=== PATIENT | male | born 1945 | race Caucasian/White ===

== ENCOUNTER 2017-01-28 05:56 | Observation (INO) | payer MEDICARE, OTHER ==
[2017-01-28 06:02] VITALS: BMI 28.3
--- NOTE | 2017-01-28 07:17 | ED PDOC ---
Arrival/HPI - General Chief Complaint: Chest Pain Time Seen by Provider: 01/28/17 06:17 Historian: Patient - History of Present Illness Narrative History of Present Illness (Text): 01/28/17 07:17 A 71 year old male, whose past medical history includes diabetes, hypertension, diverticulitis and enlarged prostate, presents to the emergency department complaining of left arm pain for 1 week. Patient states the pain is worse with rotation of the arm. Patient reports his pain began after having a syncopal episode while in [place]. He reports he felt dizzy and fell to the floor. He notes a bruise on his chest but denies any head trauma, headache, dizziness, neck pain, back pain, fever, nausea, vomiting, diarrhea, abdominal pain, chest pain, shortness of breath or any other complaints. PMD: Dr. Johnson Time/Duration: 1 week Symptom Course: Unchanged Quality: Other Context: Other Past Medical History - Provider Review Nursing Documentation Reviewed: Yes - Travel History If Yes, travel location?: [place] - Cardiac Hx Cardiac Disorders: Yes Hx Hypertension: Yes - Pulmonary Hx Respiratory Disorders: Yes Hx Pneumonia: Yes (? 10-30-15) - Neurological Hx Neurological Disorder: Yes Other/Comment: NEUROPATHY - HEENT Hx HEENT Disorder: No - Renal Hx Renal Disorder: No - Endocrine/Metabolic Hx Endocrine Disorders: Yes Hx Diabetes Mellitus Type 2: Yes - Hematological/Oncological Hx Blood Disorders: No - Integumentary Hx Dermatological Disorder: No - Musculoskeletal/Rheumatological Hx Musculoskeletal Disorders: No - Gastrointestinal Hx Gastrointestinal Disorders: Yes Hx Diverticulitis: Yes - Genitourinary/Gynecological Hx Genitourinary Disorders: Yes Hx Prostate Problems: Yes (BPH) - Psychiatric Hx Psychophysiologic Disorder: No Hx Substance Use: No Other/Comment: SOCIALLY DRINKS AND SMOKING CIGARETTES H/O - Anesthesia Hx Anesthesia Reactions: No Hx Malignant Hyperthermia: No - Suicidal Assessment Feels Threatened In Home Enviroment: No Family/Social History - Physician Review Nursing Documentation Reviewed: Yes Family/Social History: No Known Family HX Smoking Status: Current Some Days Smoker Hx Alcohol Use: Yes Frequency of alcohol use: Socially Hx Substance Use: No Hx Substance Use Treatment: No Allergies/Home Meds Allergies/Adverse Reactions: Allergies No Known Allergies Allergy (Verified 10/30/15 16:07) Home Medications: Home Meds Medication Instructions Recorded Confirmed Unobtainable 01/28/17 01/28/17 Review of Systems - Physician Review All systems were reviewed & negative as marked: Yes - Review of Systems Constitutional: absent: Fevers Respiratory: absent: SOB Cardiovascular: absent: Chest Pain Gastrointestinal: absent: Abdominal Pain, Diarrhea, Nausea, Vomiting Musculoskeletal: Other (Left arm pain). absent: Back Pain, Neck Pain Neurological: absent: Headache, Dizziness Physical Exam - Physical Exam Narrative Physical Exam (Text): Constitutional: No acute distress. Head: Normocephalic. Atraumatic. Eyes: PERRL. ENT: Moist mucous membranes. Neck: Supple. Cardiovascular: Regular rate. Chest: No tenderness. Respiratory: Clear to auscultation bilaterally. GI: Soft. Nontender. Nondistended. Back: No CVA tenderness. No midline tenderness. Musculoskeletal: No swelling of extremities. Restricted ROM in left arm secondary to pain. Skin: No rash. Echymosis to left anterior lateral wall near axilla. Neurologic: Alert, no focal deficit. Vital Signs Reviewed: Yes Vital Signs Temp Pulse Resp BP Pulse Ox 01/28/17 11:20 63 18 163/86 H 100 01/28/17 10:17 63 18 153/83 H 97 01/28/17 07:42 59 L 16 155/78 H 98 01/28/17 06:04 97.8 F 69 19 151/95 H 96 Temperature: Afebrile Blood Pressure: Hypertensive Pulse: Regular Respiratory Rate: Normal Appearance: Positive for: Well-Appearing, Non-Toxic, Comfortable Pain Distress: None Mental Status: Positive for: Alert and Oriented X 3 Medical Decision Making ED Course and Treatment: 01/28/17 07:17 Impression: A 71 year old male with left arm pain after syncopal episode/fall. On exam, restricted ROM in left arm secondary to pain. Plan: -- Left humerus xray -- Left chest xray -- Left shoulder xray -- EKG -- Labs -- Toradol -- Reassess and disposition Progress Notes: XRs negative as read by me. Patient accepted for observation for syncope by Dr. Johnson. She recommends Dr. Monson for neuro consult and Dr. Simental for ortho consult. - Lab Interpretations Lab Results: 01/28/17 07:37 01/28/17 07:37 Lab Results 01/28/17 07:37: PT 10.8, INR 1.00, APTT 28.2 01/28/17 07:37: WBC 6.7, RBC 3.43 L, Hgb 11.6 L, Hct 34.5 L, MCV 100.6, MCH 33.8 , MCHC 33.6, RDW 14.6 H, Plt Count 338, MPV 9.3, Gran % 50.6, Lymph % (Auto) 25.4, [place] % (Auto) 11.6 H, Eos % (Auto) 11.5 H, Baso % (Auto) 0.9, Gran # 3.39 , Lymph # 1.7, [place] # 0.8 H, Eos # 0.8 H, Baso # 0.06 01/28/17 07:37: Sodium 142, Potassium 4.3, Chloride 107, Carbon Dioxide 27, Anion Gap 12, BUN 13, Creatinine 0.6, Est GFR ( Amer) > 60, Est GFR (Non- Af Amer) > 60, Random Glucose 170 H, Calcium 9.1, Total Bilirubin 1.0, AST 21, ALT 31, Alkaline Phosphatase 62, Total Creatine Kinase 84, Troponin I 0.01, Total Protein 6.6, Albumin 3.7, Globulin 3.0, Albumin/Globulin Ratio 1.2 I have reviewed the lab results: Yes - RAD Interpretation Radiology Orders: 01/28/17 07:18 RIBS LEFT & PA CHEST [RAD] Stat SHOULDER LEFT [RAD] Stat 01/28/17 07:20 HUMERUS LEFT [RAD] Stat - Medication Orders Current Medication Orders: Famotidine (Pepcid) 40 mg PO HS KYRA Hydromorphone HCl (Dilaudid) 0.5 mg IVP Q4H PRN PRN Reason: Pain, Mild (1-3) Insulin Human Regular (Humulin R Low) 0 units SC ACHS KYRA PRN Reason: Protocol Discontinued Medications Ketorolac Tromethamine (Toradol) 60 mg IM STAT STA Stop: 01/28/17 07:18 Ketorolac Tromethamine (Toradol) 30 mg IVP STAT STA Stop: 01/28/17 07:27 Last Admin: 01/28/17 07:30 Dose: 30 mg - Scribe Statement The provider has reviewed the documentation as recorded by the Herlinda De Souza Provider Scribe Attestation: All medical record entries made by the Scribe were at my direction and personally dictated by me. I have reviewed the chart and agree that the record accurately reflects my personal performance of the history, physical exam, medical decision making, and the department course for this patient. I have also personally directed, reviewed, and agree with the discharge instructions and disposition. Disposition/Present on Arrival - Present on Arrival Any Indicators Present on Arrival: No History of DVT/PE: No History of Uncontrolled Diabetes: No Urinary Catheter: No History of Decub. Ulcer: No History Surgical Site Infection Following: None - Disposition Have Diagnosis and Disposition been Completed?: Yes Diagnosis: Syncope, Shoulder pain Disposition: HOSPITALIZED Disposition Time: 08:29 Patient Plan: Observation, Telemetry Condition: STABLE
[2017-01-28 07:39] LABS: ADD MANUAL DIFF? NO
[2017-01-28 07:42] LABS: BASO # 0.06 K/mm3 (0.0-2.0); BASO % 0.9 % (0.0-3.0); EOS # 0.8 (0.0-0.7); EOS % 11.5 % (1.5-5.0); GRAN # 3.39 (1.4-6.5); GRAN % 50.6 % (50.0-68.0); HEMATOCRIT 34.5 % (42.0-52.0); LYMPH # 1.7 (1.2-3.4); LYMPH % 25.4 % (22.0-35.0); MEAN CELL VOLUME 100.6 fL (80.0-105.0); MEAN CORPUSCULAR HEMOGLOBIN 33.8 pg (25.0-35.0); MEAN CORPUSCULAR HGB CONC 33.6 g/dl (31.0-37.0); MEAN PLATELET VOLUME 9.3 fl (7.0-11.0); MONO # 0.8 (0.1-0.6); MONO % 11.6 % (1.0-6.0); PLATELET COUNT 338 10^3/uL (120.0-450.0); RED CELL DISTRIBUTION WIDTH 14.6 % (11.5-14.5); WHITE BLOOD COUNT 6.7 10^3/ul (4.5-11.0)
[2017-01-28 07:53] LABS: PARTIAL THROMBOPLASTIN TIME 28.2 Seconds (23.7-30.8)
[2017-01-28 07:55] LABS: ALB/GLOB RATIO 1.2 (1.1-1.8); ALKALINE PHOSPHATASE 62 U/L (38-133); ALT/SGPT 31 U/L (7-56); AST/SGOT 21 U/L (15-59); BLOOD UREA NITROGEN 13 mg/dL (7-21); CALCIUM 9.1 mg/dL (8.4-10.5); CARBON DIOXIDE 27 mmol/L (21-33); CHLORIDE 107 mmol/L (98-107); GFR AFRICAN-AMERICAN > 60; GLUCOSE,RANDOM 170 mg/dL (70-110); POTASSIUM 4.3 mmol/L (3.6-5.0); SODIUM 142 mmol/L (132-148); TOTAL PROTEIN 6.6 g/dL (5.8-8.3)
[2017-01-28 08:10] LABS: TROPONIN I 0.01 ng/mL
[2017-01-28] MEDS ORDERED: HYDROmorphone 0.5 mg/0.5 ml ISec IVP PRN (09:47)
[2017-01-28] MEDS ORDERED: MethylPREDNISolone Depo 40 mg/ml Inj IM ONE (12:28)
[2017-01-28] MEDS ORDERED: Bupivacaine 0.5% Inj(30mL) IJ ONE (12:28)
[2017-01-28] MEDS ORDERED: Pneumococcal 23-Valent Vaccine IM ONE (12:39)
--- NOTE | 2017-01-28 12:56 | CARD ---
APPROVED REPORT EKG Measurement Heart [id number] <Conclusion> Sinus rhythm with premature atrial complexes Right bundle branch block Abnormal ECG
--- NOTE | 2017-01-28 14:38 | RAD ---
PROCEDURE: Radiographs of the Chest and Left Ribs. HISTORY: fall, L sided pain, chest bruise COMPARISON: 10/30/2015. TECHNIQUE: Frontal radiograph of the chest and multiple oblique radiographs of the left ribs were obtained. FINDINGS: LEFT RIBS: No fracture or focal lesion visualized. LUNGS: Clear. PLEURA: No pneumothorax or pleural fluid. CARDIOVASCULAR: Normal sized heart. No pulmonary vascular congestion. OTHER FINDINGS: None. IMPRESSION: Unremarkable radiographs of the chest and left ribs. No left rib fracture.
--- NOTE | 2017-01-28 14:39 | RAD ---
PROCEDURE: Radiographs of the Left Shoulder HISTORY: fall, pain with shoulder movement COMPARISON: No prior. FINDINGS: BONES: Normal. No fracture. JOINTS: Acromioclavicular degenerative arthritis. Glenohumeral articulation is unremarkable. SOFT TISSUES: Normal. OTHER FINDINGS: None. IMPRESSION: Acromioclavicular degenerative arthritis. No acute fracture.
--- NOTE | 2017-01-28 14:39 | RAD ---
PROCEDURE: Radiographs of the left humerus. HISTORY: fall, arm pain COMPARISON: None. FINDINGS: BONES: Normal. No fracture or focal lesion. SOFT TISSUES: Normal. OTHER FINDINGS: None. IMPRESSION: Normal radiographs of left humerus.
[2017-01-28] MEDS: Insulin Reg-LOW-Coverage SC SCH ×3 (15:00→21:41)
[2017-01-28] MEDS ORDERED: Ergocalciferol 50,000 Intl Units Cap PO SCH (16:00)
--- NOTE | 2017-01-28 19:30 | CON ---
DATE: 01/28/2017 The patient is a 71-year-old male complaining of left shoulder pain for approximately a week. He was in [place]. X-rays show osteoarthritis of the AC joint and subacromial impingement with a spur. I had seen him 10 years ago and he got good relief with Depo-Medrol injection. I examined him. He has tenderness to the subacromial space and the AC joint. He is able to abduct to 120 degrees. He s ays he cannot reach forward or in the back. It looks like a subacromial impingement and acromioclavi cular joint osteoarthritis with intact rotator cuff function. So I injected the subacromial space an d AC joint with Depo-Medrol and Marcaine and hopefully this will improve his symptoms. I will see him tomorrow and see how he feels. If things do not get better, I will order an MRI. Merlin Castano DO cc: [id number] TT: 01/28/2017 19:30:03 Confirmation # [id number] Dictation # [id number] brandyn
--- NOTE | 2017-01-28 20:11 | CON ---
DATE: 01/28/2017 HISTORY OF PRESENT ILLNESS: This is a 71-year-old male with past medical history of diabetes, hypert ension, diverticulitis and prostate enlargement, came to the Emergency Room complaining of left arm p ain for 1 week, which was worsened on the arm began to. The patient has a pain after having a syncopal episode in [place] and he felt dizzy and fell on the floor. Denies any headache, dizzin ess, and neck pain or back pain. PAST MEDICAL HISTORY: As above. ALLERGIES: No known drug allergies. HOME MEDICATIONS: Not known. REVIEW OF SYSTEMS: A 10-point review of systems was negative. PHYSICAL EXAMINATION: VITAL SIGNS: Blood pressure 151/95. HEENT: Normocephalic, atraumatic. NECK: Supple. NEUROLOGIC: Alert, awake, oriented x 3. No aphasia. Cranial nerves II through XII were tested. Pu pils reactive. EOM intact. Visual martinez full. No facial asymmetry. Tongue midline. Motor examin ation: Moves all the extremities except left upper extremity limited and shoulder. Sensory appears intact. Cerebellar, gait normal. IMPRESSION: Left shoulder tendinitis. Syncope, less likely seizure. We will order the CAT scan of the head without contrast. The patient was seen by Dr. Castano had an injection in the le ft shoulder. Feeling better now. Workup is in progress. We will follow up. Dewayne Monson MD cc: [id number] TT: 01/28/2017 20:10:36 Confirmation # [id number] Dictation # [id number] mn
--- NOTE | 2017-01-28 21:34 | HP ---
CHIEF COMPLAINT: Left shoulder pain and history of passing out. HISTORY OF PRESENT ILLNESS: The patient is a 71-year-old male with a past medical history of diabetes mellitus, hypertension, diverticulitis, BPH, very noncompliant, who came to the Emergency Room complaining of left shoulder pain from 1 week. The patient states the pain is worst with rotation of the arm and the patient reports that his pain began after having a syncopal episode while in [place]. He reports he felt dizzy and fell to the floor. He noticed a bruise on the chest, but denies any head trauma, headache, dizziness, neck pain , back pain, fever, nausea, vomiting, or diarrhea. No shortness of breath. PAST MEDICAL HISTORY: Hypertension, pneumonia, diabetes mellitus, diverticulitis, BPH, history of smoking. FAMILY HISTORY: Father and mother noncontributory. HABITS: Alcohol yes, smoking yes, drugs and substance abuse no. ALLERGIES: The patient is not allergic with any medication. REVIEW OF SYSTEMS: The patient is seen and examined on the bedside. is sitting on the bedside also. No nausea, vomiting, or diarrhea. No hematuria or hematochezia. No swelling of the legs. No chest pain, no palpitation, no headache, no dizziness. Complaining about left shoulder pain. PHYSICAL EXAMINATION: VITAL SIGNS: Temperature 97.8, pulse 59, respiratory 19, blood pressure 150/95 , and pulse oximetry 96. HEENT: Head normocephalic, atraumatic. Eyes: PERRLA. Extraocular muscles are intact. Conjunctivae are clear. Nose patent. Mucous membranes moist. NECK: Supple. No carotid bruit, JVD or thyromegaly. CHEST: Bilaterally symmetrical. HEART: S1, S2 positive. LUNGS: Clear to auscultation. ABDOMEN: Soft. Bowel sounds present. No organomegaly. EXTREMITIES: No edema, no cyanosis. NEUROLOGIC: The patient is awake, alert and moving all 4 extremities. No focal deficits. LABORATORY DATA: White blood cells 6.7, hemoglobin 11.6, hematocrit 34.5, and platelets 338. Sodium 142, potassium 4.3, BUN 13, creatinine 0.7, glucose 170. ASSESSMENT AND PLAN: The patient is a 71-year-old male with anemia, hyperglycemia, history of syncopal attack, uncontrolled diabetes mellitus, history of diverticulitis, benign prostatic hypertrophy, obesity, noncompliant, history of pneumonia, who was in [place] 1 week ago and had a syncopal attack over there and came here with left shoulder pain. Orthopedic consult called with Dr. Castano. He saw the patient's. A CAT scan of the head is done, the results are pending. X-ray of the humerus and shoulder done. X- rays shows osteoarthritis of the acromioclavicular joint and subacromial impingement . Ten years ago he had the same problem and got a Depo-Medrol injection and he got relief. It looks like a subacromial impingement and acromioclavicular joint osteoarthritis with intact rotator cuff function. Dr. Castano injected the subacromial space and AC joint with Depo-Medrol and Marcaine. Maybe the patient needs an MRI of the shoulder. Neurology consult called, waiting for their input. Discussion done with the . Home medications started. Gastrointestinal and deep venous thrombosis prophylaxis. Will followup. Aleyda Johnson MD cc: [id number] TT: 01/28/2017 21:34:23 huy DEY
[2017-01-29] MEDS: Insulin Reg-LOW-Coverage SC SCH ×4 (08:14→21:28)
[2017-01-29] MEDS: Multivitamin Therapeutic Tab PO SCH (09:24)
--- NOTE | 2017-01-29 12:09 | CT ---
PROCEDURE: CT HEAD WITHOUT CONTRAST. HISTORY: syncopy COMPARISON: None available. TECHNIQUE: Axial computed tomography images were obtained through the head/brain without intravenous contrast. Radiation dose: Total exam DLP = 725.84 mGy-cm. This CT exam was performed using one or more of the following dose reduction techniques: Automated exposure control, adjustment of the mA and/or kV according to patient size, and/or use of iterative reconstruction technique. FINDINGS: HEMORRHAGE: No intracranial hemorrhage. BRAIN: No mass effect or edema. Mild diffuse age-appropriate atrophy. Possible small bilateral chronic subdural frontal hygromas. These are of uniformly CSF attenuation. Alternatively, this could represent bilateral frontal atrophy. VENTRICLES: Unremarkable. No hydrocephalus. CALVARIUM: Unremarkable. PARANASAL SINUSES: Unremarkable as visualized. No significant inflammatory changes. MASTOID AIR CELLS: Unremarkable as visualized. No inflammatory changes. OTHER FINDINGS: None. 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 . No intracranial mass, hemorrhage or evidence of acute infarct.
--- NOTE | 2017-01-29 16:37 | CON ---
DATE: 01/29/2017 REASON FOR CONSULTATION: Syncope. The patient is very difficult in history taking and I relied mostly on the history reported by the Em ergency Room team as well as by the primary physician. The patient is a 71-year-old male who has history of hypertension, diabetes mellitus, divert iculitis, and benign prostatic hypertrophy. He presented because of left arm pain. A week earlier, the patient was doing some work in his house, which he did not explain to me what kind of mechanical repair he was doing. The patient claimed that he hit his shoulder against the wall and fell down and the patient did not want to go into the details of passing or not passing out. He presented because of left arm pain. He denies any history of heart attack in the past. He reported to emergency team dizziness prior to falling. The patient had no one to witness his condition at home and the wa s sitting at the bedside and denied knowing anything about the event. At this time, the patient adrián es any dizziness. SOCIAL HISTORY: The patient is a former smoker. He is and retired. MEDICATIONS: Cozaar 100 mg daily, Dilaudid 0.5 mL q.4 hours p.r.n., Glucophage 1 gram twice a day, L yrica 100 mg twice a day, multivitamin 1 tablet once a day. REVIEW OF SYSTEMS: No nausea or vomiting, no fever or chills. PHYSICAL EXAMINATION: GENERAL: The patient is an elderly male who does not appear to be in acute distress. VITAL SIGNS: Blood pressure 157/72, heart rate 51, temperature 97.1, respirations 20. HEENT: Normocephalic. NECK: No JVD. CHEST: Clear. Left subclavian ecchymosis. HEART: S1, S2 regular. EXTREMITIES: 1+ left leg edema. LABORATORY DATA: Hemoglobin and hematocrit 11.6 and 34.5. White count and platelet count are within normal limit. SMA-7 is within normal limit except for glucose of 170. One set of troponin is negat román. PT, PTT is within normal limit. Echocardiographic study performed in October of last year rev ealed ejection fraction of 65%, moderate mitral insufficiency and trace aortic insufficiency. Left h umerus x-ray: No fracture. Left shoulder x-ray revealed acromioclavicular degenerative arthritis, n o acute fracture. Head CT scan revealed bilateral chronic frontal subdural hygromas versus bifrontal atrophy. EKG revealed sinus rhythm, APCs, right bundle branch block. ASSESSMENT: 1. Questionable syncopal episode. 2. Hypertension and diabetes mellitus. 3. Mild sinus bradycardia. 4. Atrial bigeminy noted on the monitor. RECOMMENDATIONS: Continue Cozaar at 100 mg once a day, Glucophage at 1 gram twice a day. Continue t elemetry monitoring. Obtain carotid Doppler. Further neuro workup will be left for the analysis consultant n eurologist. Jai Torres MD cc: [id number] TT: 01/29/2017 16:36:47 Confirmation # [id number] Dictation # [id number]
[2017-01-30 00:16] VITALS: RESP 20
[2017-01-30 05:46] VITALS: O2SAT 96
[2017-01-30] MEDS: Insulin Reg-LOW-Coverage SC SCH ×3 (07:44→16:35)
[2017-01-30] MEDS: Multivitamin Therapeutic Tab PO SCH (09:32)
--- NOTE | 2017-01-30 10:14 | PN ---
DATE: 01/30/2017 SUBJECTIVE: The patient was seen and examined on the bedside. Looks comfortable. was sitting on the bedside also. No nausea, vomiting, or diarrhea. No hematuria, no hematochezia, no fever, no chills. PHYSICAL EXAMINATION: VITAL SIGNS: Temperature 98.6, blood pressure 157/72, heart rate 51, temperature 97.1, respiratory rate 20. HEAD: Normocephalic, atraumatic. EYES: PERRLA. Extraocular movements intact. Conjunctivae are clear. Nose is patent. Mucous membranes moist. NECK: Supple. No carotid bruit, JVD, or thyromegaly. CHEST: Bilaterally symmetrical. HEART: S1, S2 positive. LUNGS: Clear to auscultation. ABDOMEN: Soft. Bowel sounds present. No organomegaly. EXTREMITIES: +1 leg edema. NEUROLOGIC: The patient is awake, alert, moving all extremities. No focal deficit. LABORATORY DATA: White blood cells 6.7, hemoglobin 11.6, hematocrit 34.5, platelets 338. Sodium 142, potassium 4.3, BUN 13, creatinine 0.6, glucose 170. Liver function tests within normal limits. ASSESSMENT AND PLAN: The patient is a 71-year-old male with anemia, uncontrolled diabetes mellitus, came with a syncopal attack, shoulder pain, history of diverticulitis, benign prostatic hypertrophy, mild sinus bradycardia as per cardiology, atrial bigeminy noted on the monitor. Seen by the assisted living housekeeper, soto Baker. According to assisted living housekeeper, continue telemetry monitoring. He was seen by the neurologist, Dr. Dewayne Monson. Left shoulder tendinitis. According to Dr. Monson, syncope does not look like seizure. The patient was seeing Dr. Castano also. He gave an intra-articular injection , feeling better. neurology workup is in the process. We will follow up. Aleyda Johnson MD cc: [id number] TT: 01/30/2017 10:14:24 Confirmation # [id number] Dictation # [id number] MTDD
--- NOTE | 2017-01-30 14:49 | PN ---
DATE: 01/30/2017 REASON FOR CONSULTATION AND FOLLOWUP: Fell down, rule out syncope. BRIEF CLINICAL HISTORY: This is a 71-year-old Yakut-speaking male, ex-smoker with past medical his tory of hypertension, diabetes, hyperlipidemia, obesity, who was in [place] and tried to wear the shoes and tie laces. He fell down. Denies any loss of consciousness. Denies any palpitation. Com plaining of left shoulder pain and hurt. Yesterday, seen by Dr. Castano. Denies any chest pain , shortness of breath, any palpitation. PHYSICAL EXAMINATION: VITAL SIGNS: Temperature afebrile, heart rate 55, blood pressure 139/68. HEENT: PERRLA. Extraocular muscles intact. NECK: Supple. No carotid bruits. No thyromegaly. CHEST: Clear to auscultation. HEART: S1, S2 regular. ABDOMEN: Soft. EXTREMITIES: Clubbing, cyanosis negative. BLOOD WORKUP: WBC , hemoglobin , hematocrit 34.5, platelet count 338. Chemistry shows sod ium 140, potassium 4. , chloride 107, carbon dioxide 27, anion gap of 12, BUN 13, creatinine 0.6. Troponin 0.01, negative. IMPRESSION: Left shoulder joint pain, probably secondary to acromial joint arthritis, seen by Dr. Charan mitchell and was given Depo-Medrol injection at subacromial space, feels better, fell down while he was trying to . Denies any history of syncope, loss of consciousness, chest pain or any histor y of angina. History of echocardiography on 11/02/2015 that shows normal left ventricular ejection fr action 65%, trace aortic regurgitation, eccentrically directed, moderate mitral regurgitation, mild t ricuspid regurgitation, right ventricular systolic pressure 44. The patient had a stress test on 04/2014 that shows probably normal myocardial perfusion study, fixed defect, ejection fraction 60%. D iabetes, hypertension, hyperlipidemia, obesity. RECOMMENDATION: Continue evaluation and followup with Dr. Castaon. Consider stress test as out patient because of multiple risk factors, but no evidence of ischemia, no complaint of chest pain. S tress test can be done as outpatient. We will discontinue telemetry. Thank you, Dr. Johnson, for providing us the opportunity in taking care of the patient. Stephany Wilkins MD cc: [id number] TT: 01/30/2017 14:48:25 Confirmation # [id number] Dictation # [id number]
--- NOTE | 2017-01-30 17:30 | US ---
PROCEDURE: Bilateral carotid artery duplex ultrasound HISTORY: Carotid stenosis syncope PHYSICIAN(S): Tavares Stock MD. TECHNIQUE: Duplex sonography and color-flow Doppler were used to evaluate the carotid bifurcations and limited segments of the vertebral arteries bilaterally. FINDINGS: There is mild smooth echogenic plaque noted at the carotid bifurcations bilaterally. The peak systolic velocity in the proximal right internal carotid artery is 82 cm/sec. This corresponds to a 20 to 39% proximal right ICA stenosis. Normal systolic velocities are noted in the proximal right external carotid artery. There is antegrade flow in the right vertebral artery. The peak systolic velocity in the proximal left internal carotid artery is 88 cm/sec. This corresponds to a 20 to 39% proximal left ICA stenosis. Normal systolic velocities are noted in the proximal left external carotid artery. There is antegrade flow in the left vertebral artery. IMPRESSION: 1. Bilateral 20-39% proximal ICA stenoses. 2. Antegrade flow in both vertebral arteries.
[2017-01-30 18:54] VITALS: BP 132/57; PULSE 57; TEMP 97.9
--- NOTE | 2017-02-06 19:09 | DS ---
CHIEF COMPLAINT: Left shoulder pain and history of passing out. HISTORY OF PRESENT ILLNESS: The patient is a 71-year-old male with a past medical history of diabete s mellitus, hypertension, hypercholesterolemia, diverticulitis and BPH, was noncompliant with the med ications and office visits, came to the hospital with a history of a syncopal attack and left shoulde r pain. Actually, the patient was in [place] and there he had a syncopal attack and a fall on hi s left shoulder with shoulder pain, he never went to the physician over there and came back to the [place] and came to the Emergency Room. We admitted the patient and did rib x-rays, shoulder x-rays, humer us and a CAT scan of the head. A cardiology consult called with called with Dr. Wilkins to rule out arr hythmias. A carotid artery ultrasound was done and read by Dr. Tavares Stock. Seen by Neurologist Dr. Monson. Dr. Castano did intraarticular injection. After that, he started feeling. Overall th e patient felt better, was cleared by the president sales and marketing and neurologist for discharge. Was discharged home to follow up with primary care physician, president sales and marketing and neurologist as an outpatient. PAST MEDICAL HISTORY: Hypertension, pneumonia, diabetes mellitus, diverticulitis, BPH, history of sm oking. FAMILY HISTORY: Father and mother noncontributory. HABITS: Alcohol use yes, smoking yes, and substance abuse no. ALLERGIES: The patient is not allergic with any medications. REVIEW OF SYSTEMS: The patient was seen and examined on the bedside, looks comfortable. No nausea, vomiting, or diarrhea. No hematuria or hematochezia. No swelling of the leg. No headache, no dizzi ness. For more details, see my progress notes of 01/30/17. Aleyda Johnson MD cc: [id number] TT: 02/06/2017 19:08:06 huy
== END 2017-01-30 19:28 | disposition home or self-care (01) ==
LOC: ED 05:56 → ERH 09:21 → 2RSO 11:35 → INTOOBSV 01-30 09:46 → OBSVTOIN 01-30 09:46
PROVIDERS: ADMIT Internal Medicine; ATTEND Internal Medicine
DX: R55 Syncope and collapse (principal); N40.0 Benign prostatic hyperplasia without lower urinary tract symptoms; I10 Essential (primary) hypertension; E11.65 Type 2 diabetes mellitus with hyperglycemia; M19.012 Primary osteoarthritis, left shoulder; M75.42 Impingement syndrome of left shoulder; R00.1 Bradycardia, unspecified; R00.8 Other abnormalities of heart beat; D64.9 Anemia, unspecified; K57.92 Diverticulitis of intestine, part unspecified, without perforation or abscess without bleeding; E78.5 Hyperlipidemia, unspecified; E66.9 Obesity, unspecified; Z68.41 Body mass index [BMI] 40.0-44.9, adult; Z79.4 Long term (current) use of insulin; Z91.19 Patient's noncompliance with other medical treatment and regimen; Z87.891 Personal history of nicotine dependence
CPT/HCPCS: 20610; 70450; 71101; 73030; 73060; 80053; 82550; 82948; 84484; 85025; 85610; 85730; 93005; 93880; 96374; 96375; 97116; 97162; 99285; G0378; G8978; G8979; G8980; J1170; J1885

== ENCOUNTER 2017-06-20 16:56 | Inpatient (IN) | payer MEDICARE, OTHER ==
[2017-06-20 17:02] VITALS: BMI 43.4
--- NOTE | 2017-06-20 17:17 | ED PDOC ---
Arrival/HPI - General Chief Complaint: Shortness Of Breath Time Seen by Provider: 06/20/17 16:57 Historian: Patient - History of Present Illness Narrative History of Present Illness (Text): 06/20/17 17:14 A 71 year old male, whose past medical history includes CHF, A-fib, diabetes, hypertension, diverticulitis and enlarged prostate, presents to the emergency department complaining of SOB x 4 weeks. Patient stated he was living in [place], and he was admitted in the Hospital twice since last month. Patient was Dx. CHF, and A-fib. Patient denies cp, recent trauma, fever, dizziness, or abnormal gait. Time/Duration: Other (see hpi) Context: Home Past Medical History - Provider Review Nursing Documentation Reviewed: Yes - Cardiac Hx Cardiac Disorders: Yes Hx Hypertension: Yes - Pulmonary Hx Respiratory Disorders: Yes Hx Pneumonia: Yes (? 10-30-15) - Neurological Hx Neurological Disorder: Yes Other/Comment: periphral neuropathy from b/l knees down to feet, pins and needles, "legs jump" - HEENT Hx HEENT Disorder: No - Renal Hx Renal Disorder: No - Endocrine/Metabolic Hx Diabetes Mellitus Type 2: Yes - Hematological/Oncological Hx Blood Disorders: No - Integumentary Hx Dermatological Disorder: No - Musculoskeletal/Rheumatological Hx Falls: Yes (1 wk ago syncopal episode) - Gastrointestinal Hx Gastrointestinal Disorders: Yes Hx Diverticulitis: Yes Other/Comment: hemorrhoids - Genitourinary/Gynecological Hx Genitourinary Disorders: Yes Hx Prostate Problems: Yes (BPH) - Psychiatric Hx Psychophysiologic Disorder: No Hx Substance Use: No Other/Comment: SOCIALLY DRINKS AND SMOKING CIGARETTES sometimes at social gatherings - Anesthesia Hx Anesthesia Reactions: No Hx Malignant Hyperthermia: No - Suicidal Assessment Feels Threatened In Home Enviroment: No Family/Social History - Physician Review Nursing Documentation Reviewed: Yes Family/Social History: Other (Noncontributory) Smoking Status: Light Smoker < 10 Cigarettes Daily Hx Alcohol Use: Yes (social) Hx Substance Use: No Hx Substance Use Treatment: No Allergies/Home Meds Allergies/Adverse Reactions: Allergies No Known Allergies Allergy (Verified 10/30/15 16:07) Home Medications: Home Meds Medication Instructions Recorded Confirmed Atorvastatin [Lipitor] 20 mg PO DAILY 06/20/17 06/20/17 Carvedilol [Coreg] 6.25 mg PO BID 06/20/17 06/20/17 Irbesartan 150 mg PO DAILY 06/20/17 06/20/17 Losartan [Cozaar] 100 mg PO DAILY 06/20/17 06/20/17 MetFORMIN [glucOPHAGE] 1,000 mg PO BID 06/20/17 06/20/17 Spironolactone [Aldactone] 25 mg PO DAILY 06/20/17 06/20/17 Tamsulosin [Flomax] 0.4 mg PO DAILY 06/20/17 06/20/17 Review of Systems - Review of Systems Constitutional: Normal. absent: Fatigue, Weight Change, Fevers Eyes: Normal ENT: Normal Respiratory: SOB. absent: Cough, Sputum, Wheezing Cardiovascular: Edema, ROGERS. absent: Chest Pain, Palpitations, Calf Pain, Orthopnea, Syncope Gastrointestinal: Normal. absent: Abdominal Pain, Nausea, Vomiting Genitourinary Male: Normal Musculoskeletal: Normal Skin: Normal. absent: Rash Neurological: Normal. absent: Headache, Dizziness, Focal Weakness, Gait Changes , Speech Changes, Facial Droop, Disequilibrium, Seizure Endocrine: Normal Hemo/Lymphatic: Normal Psychiatric: Normal Physical Exam Vital Signs Temp Pulse Resp BP Pulse Ox 06/20/17 19:57 122/72 06/20/17 19:00 97 H 22 143/75 94 L 06/20/17 17:04 97.7 F 90 24 130/69 97 Temperature: Afebrile Blood Pressure: Normal Pulse: Regular Respiratory Rate: Normal Appearance: Positive for: Well-Appearing, Non-Toxic, Comfortable Pain Distress: None Mental Status: Positive for: Alert and Oriented X 3 - Systems Exam Head: Present: Atraumatic, Normocephalic Pupils: Present: PERRL Extroacular Muscles: Present: EOMI Conjunctiva: Present: Normal Mouth: Present: Moist Mucous Membranes Neck: Present: Normal Range of Motion Respiratory/Chest: Present: Clear to Auscultation, Good Air Exchange. No: Respiratory Distress, Accessory Muscle Use, Wheezes, Retracting Cardiovascular: Present: Normal S1, S2. No: Murmurs Abdomen: Present: Normal Bowel Sounds. No: Tenderness, Distention, Peritoneal Signs Back: Present: Normal Inspection. No: CVA Tenderness Upper Extremity: Present: Normal Inspection, Normal ROM, NORMAL PULSES, Neurovascularly Intact, Capillary Refill < 2s. No: Cyanosis, Edema Lower Extremity: Present: Normal Inspection, Edema, NORMAL PULSES, Normal ROM, Neurovascularly Intact, Capillary Refill < 2 s. No: CALF TENDERNESS Neurological: Present: GCS=15, CN II-XII Intact, Speech Normal, Motor Func Grossly Intact, Normal Sensory Function, Normal Cerebellar Funct, Gait Normal Skin: Present: Warm, Dry, Normal Color. No: Rashes Psychiatric: Present: Alert, Oriented x 3, Normal Insight, Normal Concentration Medical Decision Making ED Course and Treatment: 06/20/17 19:[address] Carreon regarding patient's complain of shortness of breath. She recommended Sudarshan Vickers Traffic Control Operator and Dr. Vila Tour Director for consult She agrees with plan for admission Re-evaluation Time: 20:00 Reassessment Condition: Re-examined, Improving,but remains with symptoms - Lab Interpretations Lab Results: 06/20/17 17:30 06/20/17 17:30 Lab Results 06/20/17 17:30: Sodium 135, Chloride 96 L, Potassium 3.6, Carbon Dioxide 29, Anion Gap 14, BUN 10, Creatinine 0.5 L, Est GFR ( Amer) > 60, Est GFR ( Non-Af Amer) > 60, Random Glucose 257 H, Calcium 8.9, Total Bilirubin 0.6, AST 22, ALT 30, Alkaline Phosphatase 127 H, Lactate Dehydrogenase 429, Total Creatine Kinase 25 L, Troponin I 0.03 D, NT-Pro-B Natriuret Pep 1820 H, Total Protein 6.7, Albumin 3.4, Globulin 3.3, Albumin/Globulin Ratio 1.0 L 06/20/17 17:30: pO2 167 H, VBG pH 7.48 H, VBG pCO2 46.0, VBG HCO3 34.3 H, VBG Total CO2 35.7 H, VBG O2 Sat (Calc) 100.2 H, VBG Base Excess 9.4 H, VBG Potassium 3.5 L, Sodium 133.0, Chloride 99.0, Glucose 277 H, Lactate 1.2, FiO2 21.0, Venous Blood Potassium 3.5 L 06/20/17 17:30: PT 12.1 H, INR 1.12 H, APTT 31.0 H 06/20/17 17:30: WBC 7.8, RBC 3.44 L, Hgb 11.6 L, Hct 34.4 L, MCV 100.0, MCH 33.7 , MCHC 33.7, RDW 14.4, Plt Count 273, MPV 9.7, Gran % 59.9, Lymph % (Auto) 18.1 L, [place] % (Auto) 11.7 H, Eos % (Auto) 9.5 H, Baso % (Auto) 0.8, Gran # 4.66, Lymph # 1.4, [place] # 0.9 H, Eos # 0.7, Baso # 0.06 I have reviewed the lab results: Yes Interpretation: Abnormal lab values - RAD Interpretation Narrative RAD Interpretations (Text): 06/20/17 20:00 CXR: NAD Radiology Orders: 06/20/17 17:19 CHEST PORTABLE [RAD] Stat - EKG Interpretation Interpreted by ED Physician: Yes (A- fib @ 91 bpm. RBBB) Type: 12 lead EKG Comparison: No previous EKG avail. - Medication Orders Current Medication Orders: Discontinued Medications Furosemide (Lasix) 40 mg IVP STAT STA Stop: 06/20/17 19:44 Last Admin: 06/20/17 19:57 Dose: 40 mg MAR Blood Pressure Document 06/20/17 19:57 RD (Rec: 06/20/17 19:57 RD [id number]) Blood Pressure Blood Pressure (100/60-150/90) 122/72 IVP Administration Document 06/20/17 19:57 RD (Rec: 06/20/17 19:57 RD [id number]) Charges for Administration # of IVP Administrations 1 Disposition/Present on Arrival - Present on Arrival Any Indicators Present on Arrival: No History of DVT/PE: No History of Uncontrolled Diabetes: No Urinary Catheter: No History of Decub. Ulcer: No History Surgical Site Infection Following: None - Disposition Have Diagnosis and Disposition been Completed?: Yes Diagnosis: CHF (congestive heart failure), A-fib Disposition: HOSPITALIZED Disposition Time: 20:01 Patient Plan: Admission Patient Problems: Current Active Problems Problem Status Onset CHF (congestive heart failure) Acute Condition: STABLE Discharge Instructions (ExitCare): Heart Failure (ED) Referrals: Aleyda Johnson MD [Primary Care Provider] - Follow up with primary Forms: [facility] (Japanese)
[2017-06-20 17:44] LABS: BASO # 0.06 K/mm3 (0.0-2.0); BASO % 0.8 % (0.0-3.0); EOS # 0.7 (0.0-0.7); EOS % 9.5 % (1.5-5.0); GRAN # 4.66 (1.4-6.5); GRAN % 59.9 % (50.0-68.0); HEMATOCRIT 34.4 % (42.0-52.0); LYMPH # 1.4 (1.2-3.4); LYMPH % 18.1 % (22.0-35.0); MEAN CORPUSCULAR HEMOGLOBIN 33.7 pg (25.0-35.0); MEAN CORPUSCULAR HGB CONC 33.7 g/dl (31.0-37.0); MEAN PLATELET VOLUME 9.7 fl (7.0-11.0); MONO # 0.9 (0.1-0.6); MONO % 11.7 % (1.0-6.0); RED CELL DISTRIBUTION WIDTH 14.4 % (11.5-14.5); WHITE BLOOD COUNT 7.8 10^3/ul (4.5-11.0)
[2017-06-20 17:48] LABS: VENOUS BLOOD GAS BASE EXCESS 9.4 mmol/L (0.0-2.0); VENOUS BLOOD PH 7.48 (7.32-7.43)
[2017-06-20 17:55] LABS: INR 1.12 (0.93-1.08)
[2017-06-20 18:06] LABS: ALKALINE PHOSPHATASE 127 U/L (38-126); ALT/SGPT 30 U/L (7-56); AST/SGOT 22 U/L (17-59); BILIRUBIN,TOTAL 0.6 mg/dL (0.2-1.3); BLOOD UREA NITROGEN 10 mg/dL (7-21); CALCIUM 8.9 mg/dL (8.4-10.5); CARBON DIOXIDE 29 mmol/L (21-33); CHLORIDE 96 mmol/L (98-107); GFR AFRICAN-AMERICAN > 60; GLUCOSE,RANDOM 257 mg/dL (70-110); POTASSIUM 3.6 mmol/L (3.6-5.0); SODIUM 135 mmol/L (132-148); TOTAL PROTEIN 6.7 g/dL (5.8-8.3)
--- NOTE | 2017-06-20 18:06 | RAD ---
HISTORY: Shortness of breath. Technique: Single view portable semi erect @ 17:48. COMPARISON: 10/30/2015. FINDINGS: LUNGS: No active pulmonary disease. PLEURA: No significant pleural effusion identified, no pneumothorax apparent. CARDIOVASCULAR: Cardiomegaly. No evidence of acute, significant cardiovascular disease. OSSEOUS STRUCTURES: No significant abnormalities. VISUALIZED UPPER ABDOMEN: Normal. OTHER FINDINGS: None. IMPRESSION: No active disease. No significant interval change compared to the prior examination(s). Please note: No preliminary report/ innterpretation of this examination provided by emergency department personnel.
[2017-06-20 18:18] LABS: TROPONIN I 0.03 ng/mL
--- NOTE | 2017-06-21 11:02 | CARD ---
APPROVED REPORT EKG Measurement Heart [id number] <Conclusion> Atrial fibrillation Right bundle branch block Abnormal ECG
[2017-06-21] MEDS ORDERED: Pneumococcal 23-Valent Vaccine IM ONE (14:42)
[2017-06-21] MEDS: Albuterol-Ipratrop 3 mg / 0.5 (3 ml) UD IH SCH (20:55)
[2017-06-21] MEDS: Insulin Reg-LOW-Coverage SC SCH (21:26)
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
--- NOTE | 2017-06-22 01:25 | HP ---
SUBJECTIVE: The patient is seen and examined on 06/20/2017 in the ER. CHIEF COMPLAINT: Shortness of breath. HISTORY OF PRESENT ILLNESS: Mr. Miah Johnson is a 71-year-old male, private patient, with history of congestive heart failure, atrial fibrillation, diabetes, hypertension, diverticulosis, and enlarged prostate, came to the Emergency Department complaining of shortness of breath for 4 weeks. The patient states today that he was living in [place] and he was admitted in the hospital twice since last month. The patient was diagnosed with congestive heart failure and atrial fibrillation. The patient denies chest pain, recent trauma, fever or chills, hematuria or hematochezia. We admitted the patient, called Cardiology consult, PAST MEDICAL HISTORY: Hypertension, history of pneumonia in October, peripheral neuropathy, restless leg syndrome, diabetes mellitus, history of fall, diverticulitis, hemorrhoids, and BPH. HABITS: Light smoker, less than 10 cigarettes per day, alcohol drinking socially as per the patient and substance abuse, no. FAMILY HISTORY: Father and mother noncontributory. MEDICATIONS: Lipitor, Coreg, lisinopril, Cozaar, Glucophage, Aldactone, and Flomax. REVIEW OF SYSTEMS: The patient was seen and examined on the bedside in the emergency room. was sitting on the bedside also. Looking comfortable. No nausea, vomiting or diarrhea. No hematuria or hematochezia. The patient has positive swelling of the leg. No chest pain. No headache. No dizziness. No fever. No chills. PHYSICAL EXAMINATION VITAL SIGNS: Temperature 97.7, respiration rate 24, blood pressure 130/69 and pulse 97. HEENT: Head is normocephalic and atraumatic. Eyes; PERRLA. Extraocular muscles are intact. Conjunctivae are clear. Nose is patent. Mucous membrane moist. NECK: Supple. No carotid bruits. No JVD or thyromegaly. CHEST: Bilaterally symmetrical. HEART: S1 and S2 positive. LUNGS: Clear to auscultation. ABDOMEN: Soft. Bowel sounds present. No organomegaly. EXTREMITIES: Positive edema. No cyanosis. No clubbing. LABORATORY DATA: White blood cells 7.8, hemoglobin 11.6, hematocrit 34.4 and platelet 273. Sodium 135, potassium 3.6, BUN 7, creatinine 0.5 and glucose 257. ASSESSMENT AND PLAN: Mr. Miah Johnson is a 71-year-old male with anemia, hypochloremia, hyperglycemia, increased blood urea nitrogen, rule out congestive heart failure, went for chest x-rays, reviewed by me. ER spoke to Dr. Vila, regarding atrial fibrillation. The patient is on anticoagulation. Recommended Eliquis 5 mg, given in the ER. The patient has history of hypertension, diverticulitis, enlarged prostate, history of pneumonia, history of peripheral vascular disease, diabetes mellitus is not controlled enough, history of hemorrhoids, has a couple of admissions in [place], history of smoking, and drinking. Started on home medications. Pulmonary and Cardiology consult called. We will follow up. Aleyda Johnson MD
--- NOTE | 2017-06-22 01:37 | PN ---
DATE: SUBJECTIVE: The patient is a 71-year-old male. The patient was seen and examined at the bedside. was sitting at the beside also. Looking comfortable. Swelling of the leg is a little bit better. No nausea, vomiting or diarrhea. No hematuria. No hematochezia. No headache. No dizziness. No chest pain. No palpitation. PHYSICAL EXAMINATION: VITAL SIGNS: Temperature 98.7, pulse 91, blood pressure 139/87, respiratory rate 27. HEENT: Head is normocephalic and atraumatic. Eyes: PERRLA. Extraocular muscles are intact. Conjunctivae are clear. Nose is patent. Mucous membranes are moist. NECK: Supple. No carotid bruits. No JVD or thyromegaly. CHEST: Bilaterally symmetrical. HEART: S1 and S2 positive. LUNGS: Clear to auscultation. ABDOMEN: Soft. Bowel sounds positive. No organomegaly. EXTREMITIES: No edema. No cyanosis. NEUROLOGIC: The patient is awake and alert. Moving all four extremities. No focal deficits. MEDICATIONS: Aldactone, Coreg, Cozaar, DuoNeb, Flomax, metformin, insulin, Lasix, Lipitor, and Pepcid. LABORATORY DATA: White blood cells 7.8, hemoglobin 11.6, hematocrit 34.4, platelets 273. PT 12.1, INR 1.12, PTT 31.0. ASSESSMENT AND PLAN: Mr. Alex Pratt is a 71-year-old with anemia, coagulopathy, hypochloremia, uncontrolled diabetes mellitus, came in with exacerbation of congestive heart failure. Chest x-ray reviewed, showed no active disease. No significant interval change compared to the prior examination. EKG: Abnormal EKG, right bundle-branch block, atrial fibrillation. Started on Eliquis. History of hypertension, diverticulitis, enlarged prostate, history of pneumonia, obesity, noncompliant. History of drinking and smoking, advised to quit drinking and smoking, discussion done with the patient's , Roque. Pulmonary and Cardiology consult report, discussion done with Dr. Bennett. We will continue present treatment, IV Lasix and Aldactone, started on sliding scale for insulin fingerstick. We will follow up. Aleyda Johnson MD MTDD
[2017-06-22] MEDS: Albuterol-Ipratrop 3 mg / 0.5 (3 ml) UD IH SCH ×4 (02:20→20:07)
[2017-06-22 07:34] LABS: ALB/GLOB RATIO 1.1 (1.1-1.8); ALKALINE PHOSPHATASE 137 U/L (38-126); ALT/SGPT 34 U/L (7-56); AST/SGOT 26 U/L (17-59); BILIRUBIN,TOTAL 0.5 mg/dL (0.2-1.3); BLOOD UREA NITROGEN 13 mg/dL (7-21); CALCIUM 8.6 mg/dL (8.4-10.5); CARBON DIOXIDE 29 mmol/L (21-33); CHLORIDE 99 mmol/L (98-107); CHOLESTEROL 66 mg/dL (130-200); GFR AFRICAN-AMERICAN > 60; GLUCOSE,RANDOM 224 mg/dL (70-110); MAGNESIUM 1.7 mg/dL (1.7-2.2); PHOSPHOROUS 3.3 mg/dL (2.5-4.5); SODIUM 139 mmol/L (132-148); TOTAL PROTEIN 7.2 g/dL (5.8-8.3)
[2017-06-22] MEDS ORDERED: Aminophylline 25 mg/ml Inj ONE (08:35)
[2017-06-22] MEDS ORDERED: Fluticasone Nasal 50 mcg/Spray NS SCH (10:00)
[2017-06-22] MEDS ORDERED: IRBESARTAN 150 MG PO SCH (10:00)
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
[2017-06-22] MEDS: Levalbuterol 0.63 MG/3 ML Inhal Soln UD IH SCH ×3 (11:26→20:07)
--- NOTE | 2017-06-22 12:47 | PN ---
DATE: 06/22/2017 REASON FOR CONSULTATION AND FOLLOWUP: Cardiac evaluation, shortness of breath, atrial fibrillation, and rule out CHF. SUBJECTIVE: The patient feels a lot better since yesterday, shortness of breath is today, awaiting to go for a stress test. OBJECTIVE: GENERAL: Sitting on the bedside, not in apparent distress. Awaiting to go for a stress test. VITAL SIGNS: As follows; temperature afebrile, heart rate is 93, and blood pressure 106/71. HEENT: PERRLA intact. NECK: Supple. No carotid bruits or thyromegaly. CHEST: Clear to auscultation. HEART: S1 and S2 regular. ABDOMEN: Soft. EXTREMITIES: Clubbing and cyanosis negative. LABORATORY DATA: Blood workup as follows: WBC is 7.8, hemoglobin 11.6, hematocrit 34.4, and platelet count 273. Chemistry shows sodium 139, potassium 4, chloride 99, carbon dioxide 29, anion gap of 15, BUN 13, creatinine 0.6, TSH 0.86, total protein 7.2, albumin 3.7, and albumin-globulin ratio 1.1. Triglycerides 58, cholesterol total 66, LDL 43, and HDL 72. Hemoglobin A1c pending. IMAGING: EKG showed atrial fibrillation right bundle-branch block. IMPRESSION: A 71-year-old male with a medical history of diabetes, hypertension, hyperlipidemia, admitted with decompensated shortness of breath, possible decompensated congestive heart failure, atrial fibrillation, new onset last day electrocardiogram and here of normal sinus. At this time, the patient admitted with atrial fibrillation. Last echocardiogram shows ejection fraction 55%, trace mitral regurgitation, trace tricuspid regurgitation, [id number] mitral regurgitation, and mild tricuspid regurgitation. The patient has 2 episodes of chest pain in [place] and they came here because of chest pain, facility was not available. Atrial fibrillation is new onset since last electrocardiogram 01/2012. Chest pain, rule out underlying coronary artery disease, so far troponin remains negative. RECOMMENDATIONS: We will get a stress test today, continue echo today, continue Eliquis for atrial fibrillation, continue losartan, and continue IV Lasix and spironolactone. Further recommendations after findings. Most likely seizure secondary to atrial fibrillation. We will follow with you. Thank you Dr. Johnson for providing us the opportunity in taking care of the patient, Alex Dooley. Stephany Wilkins MD
[2017-06-22] MEDS: Insulin Reg-LOW-Coverage SC SCH ×4 (13:17→23:04)
--- NOTE | 2017-06-22 16:58 | CARD ---
APPROVED REPORT EXAM: Two-dimensional and M-mode echocardiogram with Doppler and color Doppler. INDICATION CP/LVFX 2D DIMENSIONS Left Atrium (2D)4.7 (1.6-4.0cm)IVSd1.3 (0.7-1.1cm) LVDd4.8 (3.9-5.9cm)PWd1.7 (0.7-1.1cm) LVDs3.9 (2.5-4.0cm)FS (%) 19.8 % LVEF (%)40.8 (>50%) M-Mode DIMENSIONS Aortic Root3.60 (2.2-3.7cm)Aortic Cusp Exc.1.80 (1.5-2.0cm) Aortic Valve AoV Peak Zkjqzvuq895.0cm/Barrett Peak GR.11mmHg Mitral Valve E/A ratio0.0 TDI E/Lateral E'0.0E/Medial E'0.0 Pulmonary Valve PV Peak Kgdhjyce52.2cm/sPV Peak Grad.1mmHg Tricuspid Valve TR Peak [id number]/sRAP [id number] Peak Gr.35mmHg [id number] LEFT VENTRICLE The left ventricle is normal size. There is mild concentric left ventricular hypertrophy. The systolic function is mildly impaired.EF-40-45% There is moderate hypokinesis in the apical anterior wall. A fib No left ventricle thrombus noted on this study. There is no ventricular septal defect visualized. There is no left ventricular aneurysm. There is no mass noted in the left ventricle. RIGHT VENTRICLE The right ventricle is mildly to moderately dilated. There is normal right ventricular wall thickness. Systolic function is mildly to moderately reduced. ATRIA The left atrium is mildly dilated. The right atrium is moderately dilated. The interatrial septum is intact with no evidence for an atrial septal defect. AORTIC VALVE The aortic valve is thickened but opens well. The aortic valve is mildly sclerotic. There is trace aortic regurgitation. There is no aortic valvular stenosis. There is no aortic valvular vegetation. MITRAL VALVE The mitral valve is thickened but opens well. Mitral regurgitation is moderate. There is no mitral valve stenosis. There is no evidence of mitral valve prolapse. TRICUSPID VALVE The tricuspid valve leaflets are thickened , but open well. There is moderate tricuspid regurgitation.RVSP-45 mmof hg. There is no tricuspid valve stenosis. There is no tricuspid valve prolapse or vegetation. GREAT VESSELS The aortic root is normal in size. The ascending aorta is normal in size. The pulmonary artery is normal. The IVC is normal in size and collapses >50% with inspiration. PERICARDIAL EFFUSION There is no pleural effusion. There is no pericardial effusion. <Conclusion> The left ventricle is normal size. There is mild concentric left ventricular hypertrophy. The systolic function is mildly impaired.EF-40-45% A fib There is trace aortic regurgitation. Mitral regurgitation is moderate. There is moderate tricuspid regurgitation.RVSP-45 mmof hg. The IVC is normal in size and collapses >50% with inspiration. There is no pericardial effusion.
--- NOTE | 2017-06-22 19:30 | CARD ---
APPROVED REPORT Protocol: LEXISCAN Test Type: Lexiscan Sestamibi Stress Test Attending Physician: Dr. Stephany Vila Referring Physician: Dr. Aleyda Johnson Test Indications: Chest Pain Height:5 ft 4 in Weight:248lbs Medications: Duoneb,Eliquis,Liptor,Coreg, Pepcid,Flonase,Lasix, Xopenex, Cozar,Losartan,Metformin,Singulair, Aldactone,Flomax Medical History: 71 y/o male. Hx of hypertension,diabetic, arthritis, ETOH Target HR: 149 bpm Resting ECG: Atrial Fibrillation. RBBB. Resting Heart Rate: 96 bpm Resting Blood Pressure: 150/90mmHg Submaximum (85%): 127 bpm PROCEDURE Pharmacologic stress testing was performed using 0.4mg per 5ml of regadenoson given intravenously over 7-10 seconds. Reversal agent aminophyline 100 mg, given intravenously for Nausea. POST EXERCISE Reason for Termination: Protocol completed Target HR: No Max HR: 95 bpm 75% of Maximum Predicted HR: 149 bpm Exercise duration: 00:31 min:sec, 0 Stage Exercise capacity: 1.0METs Max Blood Pressure: 150/90mmHg Blood Pressure response to exercise: normal resting BP - appropriate response Heart Rate response to exercise: appropriate Chest Pain: No, none Angina index: 0 Arrhythmia: Yes, Atrial Fibrillation as on Resting EKG. ST Change: No, none Deviation: 0 mm TEST SUMMARY [id number]/90.2. INFUSIONDOSE 100:[id number]/.2. [id number]/80.0. INTERPRETATION Stress EKG Conclusion: IV LEXISCAN NUCLEAR STRESS TEST NEGATIVE FOR CHEST PAIN AND NEGATIVE FOR ST-T CHANGES. NUCLEAR SCAN REPORT PENDING. Signed by Stephany Vila Electronically Approved: 06/22/2017 12:04:12 EXAM: Myocardial Perfusion REST/STRESS Stress Test Type: Pharmacologic Imaging Protocol Rest Spect myocardial perfusion imaging was performed in supine position 60 minutes following the injection of 10.8 mCi of Tc-99 Myoview. At peak stress, the patient was injected intravenously with 30.7mCi of Tc-99 tetrofosmin after an infusion time of 0 minutes and 10 seconds. Gated Stress Spect was performed 75 minutes after intravenous Tc-99 Myoview injection. The images were gated to evaluate regional wall motion and calculate ventricular ejection fraction.Images were reconstructed using backfilter projection method in short horizontal and verticle long axis. Spect slices were generated. LV Perfusion The quality of the study is good. The left ventricle is within normal limits in size. The right ventricle is unremarkable. The lung uptake is normal. The distribution of tracer reveals moderately and diffusely decreased perfusion in the apex and milldy and diffusely decreased perfusion in the inferior wall on the stress study. The remainder of the LV myocardium is unremarkable. The rest myocardial perfusion study shows no significant change. Wall Motion Wall motion study shows borderline normal contractility of the left ventricle. LVEF = 48%. Conclusion 1. Probably normal SPECT myocardial perfusion study. 2. Fixed, apical and inferior defect is probably due to diaphragmatic attenuation. However, prevous myocardial injury in the apical region cannot be ruled out. 3. Borderline normal gated wall motion of the left ventricle. 4. In comparison with the last study of 04/18/2014, there is no significant change of perfusion pattern.
--- NOTE | 2017-06-22 22:49 | PN ---
PULMONARY PROGRESS NOTE DATE: 06/22/2017 REFERRING PHYSICIAN: Dr. Johnson. SUBJECTIVE: He is lying in the bed, feels much better, decreased cough, has shortness of breath. No nausea. No vomiting. No diarrhea. No leg pain or leg swelling. OBJECTIVE GENERAL: No acute distress. VITAL SIGNS: Temperature 98, heart rate 96, respiratory rate 20, blood pressure 119/65 and pulse ox 95% on room air. HEENT: Moist mucous membranes. Crowded airway. Mallampati score is IV. NECK: Supple. No JVD. LUNGS: Has a fair airflow with few rhonchi. HEART: S1 and S2. ABDOMEN: Soft and nontender. No organomegaly. SKIN: No edema. NEUROLOGICAL: Awake and alert. Follows simple commands. MEDICATIONS: He is on Aldactone 25 mg daily, Coreg 6.25 mg twice a day, Cozaar 100 mg daily, DuoNeb q. 6 hours, Eliquis 5 mg twice a day, Flomax 0.4 mg daily, Flonase one spray each nostril daily, metformin 1000 mg twice a day, insulin coverage, Lasix 40 mg twice a day, Lipitor 20 mg daily, Pepcid 40 mg at bedtime, Singulare 10 mg daily, Xopenex q. 8 hours p.r.n. LABORATORY DATA: Shows sodium 139, potassium 4.0, chloride 99, bicarbonate is 29, BUN 13, creatinine 0.6 and glucose 224. Hemoglobin A1c 9.2. Calcium 8.6, phosphorus 3.3, magnesium 1.7, AST 26, ALT 34, alkaline phosphatase is 137 and albumin is 3.7. TSH is 0.86. Myocardial stress test is done, which shows normal SPECT myocardial perfusion study. LV ejection fraction is about 48%. Wall motion study shows borderline normal contractility of the left ventricle. Compared to 04/18/2014 study, there is no significant changes in the pattern. Also had a echocardiogram done, which shows right ventricle systolic pressure is 45, LV ejection fraction is 40 to 45, mild concentric left ventricular hypertrophy. IMPRESSION AND PLAN: Cardiomyopathy with atrial fibrillation, heart failure, diabetes, hypertension, obesity, diverticulosis, pulmonary hypertension, may have sleep apnea syndrome. Pulmonary point of view doing better. We will continue bronchodilator. Keep head at 45 degrees. Diuretics anticoagulation. Sleep apnea precaution, outpatient attend sleep study and pulmonary function test. Thank you and we will follow with you. Stephany Bennett MD
[2017-06-23] MEDS: Albuterol-Ipratrop 3 mg / 0.5 (3 ml) UD IH SCH ×2 (01:38→07:39)
--- NOTE | 2017-06-23 01:43 | PN ---
DATE: SUBJECTIVE: The patient is a 71-year-old male. The patient seen and examined on the bedside, looking comfortable, still having swelling of the leg, but getting better. No nausea or vomiting. No diarrhea. Shortness of breath is better. Coughing is better, went for stress today. PHYSICAL EXAMINATION VITAL SIGNS: Temperature 98.6, heart rate 92, blood pressure 106/71, respiratory rate 18. HEENT: Normocephalic, atraumatic. Eyes, PERRLA. Extraocular muscles intact. Conjunctivae clear. Nose patent. Mucous membranes moist. NECK: Supple. No carotid bruits, JVD or thyromegaly. CHEST: Bilaterally symmetrical. HEART: S1 and S2 positive. LUNGS: Clear to auscultation. ABDOMEN: Soft. Bowel sounds positive. No organomegaly. EXTREMITIES: Positive edema +1. NEUROLOGIC: The patient is awake, alert, moving all 4 extremities. No focal deficits. Cranial nerves II through XII are grossly intact. LABORATORY DATA: White blood cells 7.8, hemoglobin 11.4, hematocrit 34.4, platelets 273. Sodium 139, potassium 4.0. BUN 13, creatinine 0.6. Glucose 226. Hemoglobin A1c is 9.2. MEDICATIONS: Aldactone, Coreg, Cozaar, DuoNeb, Eliquis, Flomax, Flonase, Glucophage, insulin, Lasix, Lipitor, Flomax, insulin, Lipitor, Pepcid, Singulair, Xopenex. ASSESSMENT AND PLAN: Mr. Alex Dooley is a 71-year-old male, uncontrolled diabetes mellitus type 2, hemoglobin A1c is 9.2, anemia, cardiomyopathy with atrial fibrillation, heart failure, hypertension, obesity, diverticulosis, sleep apnea syndrome, swelling of the leg. Dr. Bennett added inhaled bronchodilators, anticoagulation and gastric prophylaxis. Today, the patient went for stress test and according Dr. Marko Shaikh probably normal SPECT myocardial perfusion study. Fixed apical and inferior defect is probably due to diaphragmatic attenuation; however, previous myocardial injury in the apical region cannot be ruled out, borderline normal gated wall motion of the left ventricle. In comparison with the last study 04/18/2014, there is no significant change of perfusion pattern. Seen by Dr. Bennett, Garbage Collector and Dr. Wilkins, Facilities Plant Engineer. History of hyperlipidemia, was admitted for decompensated congested heart failure. The patient was on vacation in [place] and has two time hospital admissions for chest pain. According to Dr. Wilkins, atrial fibrillation is new onset since last electrocardiogram in 2013. Continue losartan, IV Lasix, spironolactone. The patient has varicose veins also. We will follow up. Aleyda Johnson MD
[2017-06-23 06:47] VITALS: O2SAT 100
[2017-06-23 07:01] LABS: BASO # 0.11 K/mm3 (0.0-2.0); BASO % 1.3 % (0.0-3.0); EOS # 1.3 (0.0-0.7); EOS % 16.3 % (1.5-5.0); GRAN # 4.08 (1.4-6.5); GRAN % 49.9 % (50.0-68.0); HEMATOCRIT 39.8 % (42.0-52.0); LYMPH # 1.7 (1.2-3.4); LYMPH % 20.7 % (22.0-35.0); MEAN CELL VOLUME 101.8 fl (80.0-105.0); MEAN CORPUSCULAR HEMOGLOBIN 33.2 pg (25.0-35.0); MEAN CORPUSCULAR HGB CONC 32.7 g/dl (31.0-37.0); MEAN PLATELET VOLUME 9.1 fl (7.0-11.0); MONO % 11.8 % (1.0-6.0); RED CELL DISTRIBUTION WIDTH 14.5 % (11.5-14.5); WHITE BLOOD COUNT 8.2 10^3/ul (4.5-11.0)
[2017-06-23 07:22] LABS: ALB/GLOB RATIO 1.1 (1.1-1.8); ALKALINE PHOSPHATASE 111 U/L (38-126); ALT/SGPT 42 U/L (7-56); AST/SGOT 27 U/L (17-59); BILIRUBIN,TOTAL 0.5 mg/dL (0.2-1.3); BLOOD UREA NITROGEN 14 mg/dL (7-21); CALCIUM 8.9 mg/dL (8.4-10.5); CARBON DIOXIDE 30 mmol/L (21-33); CHLORIDE 97 mmol/L (98-107); GFR AFRICAN-AMERICAN > 60; GLUCOSE,RANDOM 230 mg/dL (70-110); MAGNESIUM 1.8 mg/dL (1.7-2.2); POTASSIUM 4.3 mmol/L (3.6-5.0); SODIUM 138 mmol/L (132-148); TOTAL PROTEIN 7.2 g/dL (5.8-8.3)
[2017-06-23] MEDS: Insulin Reg-LOW-Coverage SC SCH (08:32)
[2017-06-23 11:29] VITALS: BP 111/80; PULSE 49; RESP 16; TEMP 98.6
--- NOTE | 2017-06-23 15:49 | PN ---
DATE: 06/23/2017 REASON FOR CONSULTATION AND FOLLOWUP: Cardiac evaluation, shortness of breath, decompensated congestive heart failure, acute on chronic systolic dysfunction as well as new onset atrial fibrillation. SUBJECTIVE: The patient feels a lot better, wanted to go home. No shortness of breath. No chest pain. OBJECTIVE: GENERAL: Sitting in the chair, states that he feels better. VITAL SIGNS: Temperature afebrile, heart rate 100, blood pressure 102/73. HEENT: PERRLA, intact. NECK: Supple. No carotid bruit or thyromegaly. CHEST: Clear to auscultation. HEART: S1 and S2, regular. ABDOMEN: Soft. EXTREMITIES: Clubbing and cyanosis negative. LABORATORY DATA: Blood workup as follows: WBC 8.8, hemoglobin 13, hematocrit 39.8, platelet count 325. Chemistry showed sodium 130, potassium 4.3, chloride 97, carbon dioxide 30, anion gap of 15, BUN 14, creatinine 0.7. The patient underwent a stress test that showed fixed probably normal myocardial perfusion with ejection fraction of 48%, borderline gated wall motion of the left ventricle. In comparison with last study 04/18/2014, there is no significant change in perfusion pattern. The patient had echocardiography also done yesterday, that showed ejection fraction of 40% to 45%, atrial fibrillation, trace aortic rhythm, moderate mitral regurgitation. IMPRESSION: Decompensated congestive heart failure secondary to acute on chronic systolic dysfunction, atrial fibrillation, possible new onset since the patient had last EKG here in the hospital in January. Denies any episode of chest pain, no evidence of acute myocardial infarction at this time. RECOMMENDATIONS: Since the patient on Eliquis, continue Eliquis. For atrial fibrillation, continue losartan, continue spironolactone, continue Lasix, we will change to 40 now and possible discharge. Discussed with the patient's that if the patient if get more short of breath, then consider strongly cardiac catheterization. As have the blockage, but since the patient has no evidence of TN, no evidence of ischemia on a stress test and no chest pain we will treat with conservatively. If the patient develops chest pain or get more short of breath, definitely needs cardiac catheterization. Discussed with the patient and the patient's , they wanted to go home. We will change the Lasix to p.o. Further recommendations depending upon hospital course, and upon we will like to see the patient in 2 weeks. For now, continue spironolactone, continue Coreg, continue losartan, ARB inhibitor and we will change Lasix to p.o. We will follow with you. Thank you Dr. Johnson for providing the opportunity in taking care of patient, Alex Dooley. Stephany Wilkins MD
--- NOTE | 2017-06-29 04:24 | DS ---
CHIEF COMPLAINT: Shortness of breath. HISTORY OF PRESENT ILLNESS: Mr. Alex Dooley is a 71-year-old male, past history of congestive heart failure, atrial fibrillation, diabetes mellitus, hypertension, diverticulosis, enlarged prostate who came to the Emergency Department complaining of shortness of breath for 4 weeks. The patient states that today his shortness of breath was very bad that is why he came, actually the patient was living in [facility] and was admitted over there at least 2 times with exacerbation of congestive heart failure and was given medications there. Now, came here with the same shortness of breath, not feeling well. We admitted the patient, did chest x-rays, electrocardiography, myocardiac stress test, seen by Dr. Wilkins and Dr. Bennett, felt better, cleared by the Cardiology and Pulmonary on 06/23/2017 discharge home. PAST MEDICAL HISTORY: Hypertension, history of pneumonia, peripheral neuropathy, restless leg syndrome, uncontrolled diabetes mellitus, history of fall, diverticulitis, hemorrhoids, and BPH. HABITS: Light smoker, less than 10 cigarettes per day. Alcohol drinking, socially as per the patient, but looks like he is drinking more than socially and substance abuse, no. FAMILY HISTORY: Father and mother noncontributory. MEDICATIONS: Coreg, Lipitor, Cozaar, Glucophage, Aldactone, and Flomax. REVIEW OF SYSTEMS: The patient was seen and examined on the bedside on 06/23/2017. I am doing a discharge summary for 06/23/2017, shortness of breath is better. No nausea, vomiting, or diarrhea. No hematuria or hematochezia. No fever. No chills. No headache. No dizziness. Happy to go home. PHYSICAL EXAMINATION: VITAL SIGNS: Temperature 98.6, pulse 49, blood pressure 111/80 and respiratory rate 16. HEENT: Head is normocephalic and atraumatic. Eyes; PERRLA. Extraocular muscles are intact. Conjunctivae are clear. Nose is patent. Mucous membrane moist. NECK: Supple. No carotid bruits. No JVD or thyromegaly. CHEST: Bilaterally symmetrical. HEART: S1 and S2 positive. LUNGS: Clear to auscultation. ABDOMEN: Soft. Bowel sounds present. No organomegaly. EXTREMITIES: No edema. No cyanosis. NEUROLOGIC: The patient is awake and alert. Moving all 4 extremities. No focal deficits. LABORATORY DATA: White blood cell 8.2, hemoglobin 13.0, hematocrit 39.8, and platelets 325. Sodium 138, potassium 4.3, BUN 40, creatinine 0.7, and glucose 156. Liver function test within normal limits. Medications are reviewed by me. ASSESSMENT AND PLAN: Mr. Alex Dooley is 71-year-old male, came with decompensated congestive heart failure secondary to acute on chronic systolic dysfunction, atrial fibrillation, he is on blood thinner, looks like new onset from last EKG over here in the hospital in January, but as per the patient in [place], he has atrial fibrillation. No evidence of acute myocardial infarction at this time as per Cardiology. Since the patient is on Eliquis, continue Eliquis for atrial fibrillation. Continue losartan, spironolactone and Lasix changed to [address] Wilkins. Discussion done with the patient's multiple time. If the patient will get more shortness of breath then consider strongly cardiac catheterization as per Dr. Wilkins. The patient has uncontrolled diabetes mellitus, hemoglobin A1c is high, obstructive sleep apnea, noncompliant with bilevel positive airway pressure, cardiomyopathy, hypertension, diverticulosis, obesity, pulmonary hypertension, sleep apnea syndrome. Continue bronchodilators. Sleep apnea precautions. Need sleep study and pulmonary function test as an outpatient. Length of time discussion done with the patient's . Discharge home with . Prescription of medications given with followup industrial methods consultant, alumnae secretary, and primary care physician. Aleyda Johnson MD
== END 2017-06-23 13:02 | disposition home or self-care (01) | DRG 292 ==
LOC: ED 16:56 → ERH 20:02 → 2RSO 06-21 15:27
PROVIDERS: ADMIT Internal Medicine; ATTEND Internal Medicine
DX: I11.0 Hypertensive heart disease with heart failure (principal); I50.23 Acute on chronic systolic (congestive) heart failure; Z68.41 Body mass index [BMI] 40.0-44.9, adult; E11.42 Type 2 diabetes mellitus with diabetic polyneuropathy; E11.51 Type 2 diabetes mellitus with diabetic peripheral angiopathy without gangrene; E11.65 Type 2 diabetes mellitus with hyperglycemia; I08.1 Rheumatic disorders of both mitral and tricuspid valves; I48.91 Unspecified atrial fibrillation; I42.9 Cardiomyopathy, unspecified; G25.81 Restless legs syndrome; E78.5 Hyperlipidemia, unspecified; D64.9 Anemia, unspecified; F17.210 Nicotine dependence, cigarettes, uncomplicated; K64.9 Unspecified hemorrhoids; K57.90 Diverticulosis of intestine, part unspecified, without perforation or abscess without bleeding; N40.0 Benign prostatic hyperplasia without lower urinary tract symptoms; G47.30 Sleep apnea, unspecified; E66.9 Obesity, unspecified; I45.10 Unspecified right bundle-branch block; I27.20 Pulmonary hypertension, unspecified; I83.90 Asymptomatic varicose veins of unspecified lower extremity; Z87.01 Personal history of pneumonia (recurrent); Z79.84 Long term (current) use of oral hypoglycemic drugs; Z79.01 Long term (current) use of anticoagulants; Z91.19 Patient's noncompliance with other medical treatment and regimen

== ENCOUNTER 2018-10-24 07:13 | Outpatient (CLI) | payer MEDICARE, SELFPAY | END 2018-10-24 07:14 | disposition home or self-care (01) | LOC: RAD 07:13 ==

== ENCOUNTER → 2018-12-19 | Outpatient (CLI) | payer MEDICARE, SELFPAY | LOC: CARDIO 07:32 ==